=== PATIENT | female | born 1985 | race African-American/Black ===

== ENCOUNTER 2021-09-19 21:37 | Emergency (ER) | payer OTHER ==
[2021-09-19] MEDS ORDERED: Diazepam 5 MG TAB ONE (22:39)
[2021-09-19] MEDS ORDERED: Ondansetron ODT 4 MG TAB ONE (22:39)
== END 2021-09-19 22:56 | disposition home or self-care (01) ==
LOC: CSHERS 21:37
DX: T40.711A Poisoning by cannabis, accidental (unintentional), initial encounter (principal)
CPT/HCPCS: 93005; 93010; Q0162